=== PATIENT | male | born 1950 | race Caucasian/White ===

== ENCOUNTER 2022-09-13 11:45 | Day surgery (SDC) | payer MEDICARE, OTHER ==
[~2022-09-13] VITALS: Ht 177.8 cm; Wt 90.5 kg
[~2022-09-13 11:45] MED LIST: CIPR500 PO; METR500 PO
[2022-09-13] MEDS ORDERED: TAMS.4ER (12:14)
[2022-09-13] MEDS ORDERED: METAMUCIL POWD798 GM (12:14)
[2022-09-13] MEDS ORDERED: MULTIPLE VITAM1 EACH (12:15)
[2022-09-13 13:52] VITALS: BP 102/51
--- NOTE | 2022-09-13 13:53 | NUR ---
09/13/22 1353 Mona Duque IV, DC'D, CATH INTACT. PRESSURE DRESSING APPLIED. PT TOLERATED WELL.
== END 2022-09-13 13:53 | disposition home or self-care (01) ==
LOC: ORSCSDS 11:45
PROVIDERS: Surgery
PROC: 0DBE8ZX Excision of Large Intestine, Via Natural or Artificial Opening Endoscopic, Diagnostic (ICD-10-PCS; principal; 2022-09-13 13:00)
PROC: 0DBM8ZX Excision of Descending Colon, Via Natural or Artificial Opening Endoscopic, Diagnostic (ICD-10-PCS; principal; 2022-09-13 13:00)
PROC: 0DBL8ZX Excision of Transverse Colon, Via Natural or Artificial Opening Endoscopic, Diagnostic (ICD-10-PCS; principal; 2022-09-13 13:00)
DX: Z85.040 Personal history of malignant carcinoid tumor of rectum (principal); D12.3 Benign neoplasm of transverse colon; D12.4 Benign neoplasm of descending colon; Z87.891 Personal history of nicotine dependence; Z79.899 Other long term (current) drug therapy
CPT/HCPCS: 88305; J2704; J7120

== ENCOUNTER 2024-06-25 16:41 | Inpatient (IN) | payer MEDICARE, OTHER ==
[~2024-06-25] VITALS: Ht 177.8 cm; Wt 83.6 kg
[~2024-06-25 16:41] MED LIST changes: +Aspir 8181 MG PO; +MULTIPLE VITAM1 EACH PO; +PSYLLIUM FIBER PO; +TAMS.4ER PO
[2024-06-25 17:39] LABS: Hematocrit 32.8 % (37.0-53.0); Hemoglobin 10.5 g/dL (13.5-17.5); Mean Corpuscular HGB 25.7 pg (26.0-34.0); Mean Corpuscular Volume 80 fL (80-100); Mean Platelet Volume 8.9 fL (9.1-12.4); Platelet Count 730 K/mm3 (150-400); RDW Standard Deviation 46.2 fL (35.1-46.3); Red Blood Cell Count 4.09 M/mm3 (4.30-5.90); White Blood Cell Count 28.71 K/mm3 (4.00-11.30)
[2024-06-25 17:58] LABS: Bun/Creatinine Ratio 40.2 (12.0-20.0); Calcium, Blood 7.6 mg/dL (8.5-10.1); Creatinine, Blood 0.6 mg/dL (0.60-1.20); Potassium, Blood 3.9 mmol/L (3.5-5.5)
[2024-06-25 17:59] LABS: BAND PERCENT MAN 5 % (0-8); BASOPHILS PERCENT MAN 0 % (0-2); EOSINOPHILS PERCENT MAN 0 % (0-6); LYMPHOCYTES ABSOLUTE MAN 1.43 K/mm3 (0.84-5.20); LYMPHOCYTES PERCENT MAN 5 % (21-46); MONOCYTES ABSOLUTE MAN 1.43 K/mm3 (0.16-1.47); MONOCYTES PERCENT MAN 5 % (4-13); NEUTROPHILS ABSOLUTE MAN 25.83 K/mm3 (1.96-9.15); SEG NEUTROPHILS PERCENT MAN 85 % (41-73); TOTAL CELLS COUNTED 100
[2024-06-25] MEDS ORDERED: NS 1,000 ML IV SCH ×2 (19:00)
[2024-06-25] MEDS ORDERED: LevoFLOXacin 750 MG/D5W 150ML 150 ML IV ONE (19:00)
[2024-06-25] MEDS ORDERED: MetroNIDAZOLE 500MG/NS 100 ml 100 ML IV ONE (19:00)
[2024-06-25 19:22] LABS: Albumin, Blood 1.3 g/dL (3.4-5.0); Albumin/Globulin Ratio 0.3 (0.8-1.8); Bilirubin, Direct 0.5 mg/dL (0.0-0.3); Bilirubin, Indirect 0.6 mg/dL (0.1-0.7); Bilirubin, Total 1.1 mg/dL (0.1-1.0); Globulin, Blood 4.8 g/dL (2.2-4.0); Total Protein, Blood 6.1 g/dL (6.4-8.2)
[2024-06-25] MEDS ORDERED: Morphine Sulfate 4 MG/1 ML Injection IV ONE ×2 (19:50→23:15)
[2024-06-25] MEDS ORDERED: NS 1,000 ML IV ONE (23:38)
[2024-06-26] MEDS ORDERED: Ondansetron HCl 2 MG / ML 2ML Vial IV PRN (00:05)
[2024-06-26] MEDS ORDERED: FentaNYL Citrate 50 MCG/ML 2 ML Injection IV PRN (00:05)
[2024-06-26] MEDS ORDERED: FLU VACC TS2024-25(6MOS UP)/PF 45 MCG/0.5 ML SYRINGE IM ONE (00:05)
[2024-06-26] MEDS ORDERED: NS 1,000 ML IV SCH (00:10)
[2024-06-26] MEDS ORDERED: Vancomycin HCL 2,000 MG in NS 500 ML IV ONE (00:30)
[2024-06-26] MEDS ORDERED: Cefepime HCl 1,000 MG in NS 100 ML IV SCH (00:45)
[2024-06-26 01:00] LABS: Source, Urine Clean Catch
[2024-06-26 01:18] LABS: Appearance, Urine Clear (Clear); Bilirubin, Urine Neg (Neg); Blood, Urine 1+ (Neg); Color, Urine Amber (P-Yellow); Glucose Qualitative, Urine Neg (Neg); Ketones, Urine 2+ (Neg); Leukocyte Esterase, Urine 1+ (Neg); Nitrite, Urine Neg (Neg); Protein, Urine 2+ (Neg); Urobilinogen, Urine 3+ (Normal)
[2024-06-26 01:27] LABS: Red Blood Cells, Urine 0-2 /hpf (0-2); Squamous Epithelial Cells Few /hpf (Few); White Blood Cells, Urine 0-2 /hpf (0-5)
[2024-06-26 01:28] LABS: Bacteria Mod /hpf
[2024-06-26] MEDS ORDERED: Albumin (Human) 25gm/100ml 100 ML IV ONE (02:05)
[2024-06-26 02:31] VITALS: BP 112/63
--- NOTE | 2024-06-26 05:47 | NUR ---
SHIFT SUMMARY; AFTER ADMIT, PATIENT HAS NOT HAD STOOLS YET. DECLINED PAIN MED, FOR NOW. IVF STARTED. TELE ST 117.
[2024-06-26 06:45] LABS: Hematocrit 28.1 % (37.0-53.0); Hemoglobin 8.8 g/dL (13.5-17.5); Mean Corpuscular HGB 25.8 pg (26.0-34.0); Mean Corpuscular HGB Conc 31.3 g/dL (31.5-36.5); Mean Corpuscular Volume 82 fL (80-100); Mean Platelet Volume 8.7 fL (9.1-12.4); Platelet Count 586 K/mm3 (150-400); RDW Coefficient Variation 15.9 % (11.7-14.2); RDW Standard Deviation 47.8 fL (35.1-46.3); Red Blood Cell Count 3.41 M/mm3 (4.30-5.90); White Blood Cell Count 20.65 K/mm3 (4.00-11.30)
[2024-06-26 07:10] LABS: Albumin/Globulin Ratio 0.5 (0.8-1.8); Bilirubin, Total 0.8 mg/dL (0.1-1.0); Bun/Creatinine Ratio 49.1 (12.0-20.0); Creatinine, Blood 0.65 mg/dL (0.60-1.20); Globulin, Blood 3.9 g/dL (2.2-4.0); Potassium, Blood 3.7 mmol/L (3.5-5.5); Total Protein, Blood 5.9 g/dL (6.4-8.2)
[2024-06-26 07:29] VITALS: BP 134/69
[2024-06-26 07:31] LABS: BAND PERCENT MAN 2 % (0-8); BASOPHILS PERCENT MAN 0 % (0-2); EOSINOPHILS PERCENT MAN 0 % (0-6); LYMPHOCYTES ABSOLUTE MAN 0.82 K/mm3 (0.84-5.20); LYMPHOCYTES PERCENT MAN 4 % (21-46); METAMYELOCYTE PERCENT MAN 1 % (0-0); MONOCYTES ABSOLUTE MAN 0.82 K/mm3 (0.16-1.47); MONOCYTES PERCENT MAN 4 % (4-13); NEUTROPHILS ABSOLUTE MAN 18.79 K/mm3 (1.96-9.15); SEG NEUTROPHILS PERCENT MAN 89 % (41-73); TOTAL CELLS COUNTED 100
[2024-06-26] MEDS ORDERED: Lactated Ringer's 1,000 ML IV SCH (11:05)
[2024-06-26] MEDS ORDERED: MetroNIDAZOLE 500MG/NS 100 ml 100 ML IV SCH (12:00)
[2024-06-26 12:12] LABS: Phosphorus, Blood 2.4 mg/dL (2.5-4.9)
[2024-06-26 12:35] VITALS: BP 133/70
[2024-06-26 14:59] LABS: Vancomycin, Trough 14.3 ug/mL (5.0-10.0)
[2024-06-26] MEDS ORDERED: Vancomycin HCL 1,500 MG in NS 250 ML IV SCH (15:00)
[2024-06-26] MEDS ORDERED: OxyCODONE HCL 5 MG TAB PO PRN (15:20)
[2024-06-26 16:15] VITALS: BP 135/76
--- NOTE | 2024-06-26 18:15 | NUR ---
SUMMARY- PT A/O X4, AMBULATES SBA. ABD MOD DISTENDED. HAD SURG CONSULT DR ALSTON. SHE WILL BE REFERRING HIM TO A COLORECTAL SURGEON TO PERFORM THIS SURGERY. PAIN IS IN THE R GROIN RADIATION INTO THE THIGH, CAUSING NUMBNESS INTO THISH AND PAIN. PAIN MANAGED WITH FENT THIS AM, CHANGED TO OXYCONE FOR LONGER COVERAGE WITH FENT AVAIL FOR BTP. PT STATES RELEIF AFTER OXY. AND CAUTIONS THAT HE HAS BECOME VERY LOOPY AND MEAN WITH OXY, WILL MONITOR. WILL REPORT TO NOC RN
[2024-06-26] MEDS ORDERED: MOBIC15 MG PO (18:35)
[2024-06-26] MEDS ORDERED: GABA100 PO (18:35)
[2024-06-26 19:22] VITALS: BP 138/68
[2024-06-26 23:59] VITALS: BP 138/71
[2024-06-27 04:08] VITALS: BP 127/67
--- NOTE | 2024-06-27 05:59 | NUR ---
SHIFT SUMMARY PT SLEPT INTERMITTENTLY DURING THE NIGHT. PT UP TO BATHROOM WITH SBA- LOOSE YELLOW, RED-TINGED, MUCOUSY STOOL. MEDICATED FOR PAIN PER EMAR. IV ANTIBIOTICS PER ORDER. PT TAKING IN SMALL AMOUNTS OF CLEAR LIQUIDS WITHOUT NAUSEA. BED IN LOWEST POSITION, CALL LIGHT WITHIN REACH, SIDERAILS UP X2.
[2024-06-27 06:36] LABS: Hematocrit 23.1 % (37.0-53.0); Hemoglobin 7.3 g/dL (13.5-17.5); Mean Corpuscular HGB Conc 31.6 g/dL (31.5-36.5); Mean Corpuscular Volume 82 fL (80-100); Mean Platelet Volume 9.2 fL (9.1-12.4); Platelet Count 531 K/mm3 (150-400); RDW Coefficient Variation 16.1 % (11.7-14.2); RDW Standard Deviation 48.2 fL (35.1-46.3); Red Blood Cell Count 2.81 M/mm3 (4.30-5.90); White Blood Cell Count 14.95 K/mm3 (4.00-11.30)
[2024-06-27 07:07] LABS: Magnesium, Blood 1.8 mg/dL (1.6-2.4)
--- NOTE | 2024-06-27 07:36 | NUR ---
ASSUMPTION OF CARE: ASSUMED CARE OF PATIENT. AWAKE DURING SHIFT CHANGE REPORT. LYING IN BED c HOB ELEVATED. FLUIDS @ 125mL/hr. BREATHING EVEN AND UNLABORED. BED IN LOWEST POSITION. CALL LIGHT WITHIN REACH. NO ACUTE NEEDS.
[2024-06-27 07:46] VITALS: BP 125/68
[2024-06-27] MEDS ORDERED: Arginine/Glutamine/Calcium Hmb 1 Packet PO SCH (08:00)
[2024-06-27 08:07] LABS: BAND PERCENT MAN 2 % (0-8); BASOPHILS PERCENT MAN 0 % (0-2); EOSINOPHILS ABSOLUTE MAN 0.14 K/mm3 (0.00-0.68); EOSINOPHILS PERCENT MAN 1 % (0-6); LYMPHOCYTES % ATYPICAL MANUAL 1 % (0-0); LYMPHOCYTES ABSOLUTE MAN 1.64 K/mm3 (0.84-5.20); LYMPHOCYTES PERCENT MAN 10 % (21-46); MONOCYTES ABSOLUTE MAN 1.34 K/mm3 (0.16-1.47); MONOCYTES PERCENT MAN 9 % (4-13); NEUTROPHILS ABSOLUTE MAN 11.81 K/mm3 (1.96-9.15); SEG NEUTROPHILS PERCENT MAN 77 % (41-73); TOTAL CELLS COUNTED 100
[2024-06-27 08:08] LABS: Albumin, Blood 1.7 g/dL (3.4-5.0); Albumin/Globulin Ratio 0.5 (0.8-1.8); Bilirubin, Total 0.7 mg/dL (0.1-1.0); Calcium, Blood 7.8 mg/dL (8.5-10.1); Creatinine, Blood 0.64 mg/dL (0.60-1.20); Globulin, Blood 3.7 g/dL (2.2-4.0); Phosphorus, Blood 2.2 mg/dL (2.5-4.9); Potassium, Blood 3.3 mmol/L (3.5-5.5); Total Protein, Blood 5.4 g/dL (6.4-8.2)
[2024-06-27] MEDS ORDERED: Lactated Ringer's 1,000 ML IV SCH (09:00)
[2024-06-27] MEDS ORDERED: Potassium Chloride 40 MEQ in NS 250 ML IV ONE ×2 (09:05→13:00)
[2024-06-27] MEDS ORDERED: Potassium Phosphate Dibasic 20 MM in Dextrose 5% 500 ML IV STA (09:09)
--- NOTE | 2024-06-27 13:57 | NUR ---
DISCHARGE SUMMARY: A&Ox4. PLEASANT AND COOPERATIVE WITH CARE. CALLS APPROPRIATELY AND IS ABLE TO ADVOCATE NEEDS EFFECTIVELY. AMBULATES c SBA. CONTINENT OF BOWEL AND BLADDER. MEDS WHOLE c FLUIDS. LBM TODAY. TELE NSR. C/O PAIN IN HANDS AND REQUESTED PAIN MED TWICE. MEDICATIONS FAXED TO [facility]. INSTRUCTED TO FOLLOW-UP WITH PCP AND DERMAGOLOGY ORDERED. LEFT FLOOR AT 1358 WITH ALL BELONGINGS AND DISCHARGE PACKET, ESCORTED BY FAMILY.
[2024-06-27 19:31] VITALS: BP 142/68
[2024-06-27] MEDS ORDERED: Enoxaparin 40 MG/0.4 ML SYR SC SCH ×2 (20:00)
[2024-06-27 23:45] VITALS: BP 130/74
[2024-06-28 05:12] VITALS: BP 146/66
[2024-06-28 05:22] LABS: Hematocrit 23.7 % (37.0-53.0); Hemoglobin 7.5 g/dL (13.5-17.5); Mean Corpuscular HGB Conc 31.6 g/dL (31.5-36.5); Mean Corpuscular Volume 82 fL (80-100); NRBC ABSOLUTE 0.02 K/mm3 (0.00-0.02); NRBC Auto 0.2 /100 WBC (0.0-0.2); Platelet Count 530 K/mm3 (150-400); RDW Coefficient Variation 16.3 % (11.7-14.2); RDW Standard Deviation 47.9 fL (35.1-46.3); Red Blood Cell Count 2.89 M/mm3 (4.30-5.90); White Blood Cell Count 9.28 K/mm3 (4.00-11.30)
[2024-06-28 05:41] LABS: International Normalized Ratio 1.32; Prothrombin Time Results 13.8 Sec (9.7-11.5)
[2024-06-28 05:47] LABS: Magnesium, Blood 1.8 mg/dL (1.6-2.4)
[2024-06-28 05:48] LABS: Albumin, Blood 1.6 g/dL (3.4-5.0); Albumin/Globulin Ratio 0.4 (0.8-1.8); Bilirubin, Total 0.5 mg/dL (0.1-1.0); Bun/Creatinine Ratio 13.9 (12.0-20.0); Calcium, Blood 7.8 mg/dL (8.5-10.1); Creatinine, Blood 0.65 mg/dL (0.60-1.20); Globulin, Blood 3.9 g/dL (2.2-4.0); Phosphorus, Blood 2.5 mg/dL (2.5-4.9); Potassium, Blood 3.4 mmol/L (3.5-5.5); Total Protein, Blood 5.5 g/dL (6.4-8.2)
[2024-06-28 05:55] LABS: BAND PERCENT MAN 5 % (0-8); BASOPHILS PERCENT MAN 0 % (0-2); EOSINOPHILS ABSOLUTE MAN 0.18 K/mm3 (0.00-0.68); EOSINOPHILS PERCENT MAN 2 % (0-6); LYMPHOCYTES ABSOLUTE MAN 0.64 K/mm3 (0.84-5.20); LYMPHOCYTES PERCENT MAN 7 % (21-46); METAMYELOCYTE ABSOLUTE MAN 0.09 K/mm3 (0.00-0.00); METAMYELOCYTE PERCENT MAN 1 % (0-0); MONOCYTES ABSOLUTE MAN 1.11 K/mm3 (0.16-1.47); MONOCYTES PERCENT MAN 12 % (4-13); MYELOCYTE ABSOLUTE MAN 0.27 K/mm3 (0.00-0.00); MYELOCYTE PERCENT MAN 3 % (0-0); NEUTROPHILS ABSOLUTE MAN 6.96 K/mm3 (1.96-9.15); SEG NEUTROPHILS PERCENT MAN 70 % (41-73); TOTAL CELLS COUNTED 100
--- NOTE | 2024-06-28 06:02 | NUR ---
SHIFT SUMMARY PT SLEPT INTERMITTENTLY DURING THE NIGHT. URICEL DRAIN WITH BROWN/PINK DRAINAGE. DRAIN IS EMPTYING SOME AIR FROM ABSCESSED AREA AT TIMES. PT STATES HE FEELS SOME INCREASED PAIN WHEN THIS HAPPENS. MEDICATED FOR PAIN PER EMAR. IV ANTIBIOTICS CONTINUE PER ORDER. NEW IV STARTED LEFT FOREARM. BED IN LOWEST POSITION, CALL LIGHT WITHIN REACH, SIDERAILS UP X2.
[2024-06-28 07:27] VITALS: BP 147/76
--- NOTE | 2024-06-28 07:38 | NUR ---
ASSUMPTION OF CARE: AWAKE DURING SHIFT CHANGE REPORT. URASIL PATENT AND DRAINING PINKISH-CASTELLANO DRAINAGE. NO ACUTE NEEDS.
[2024-06-28] MEDS ORDERED: Protein Supplement 30 ML UD PO SCH (09:00)
[2024-06-28 11:58] VITALS: BP 122/73
[2024-06-28 15:43] VITALS: BP 137/66
[2024-06-28] MEDS ORDERED: Sod Ferric Gluc Complx/Sucrose 125 MG in NS 100 ML IV SCH (16:00)
[2024-06-28 19:29] VITALS: BP 126/68
--- NOTE | 2024-06-28 19:56 | NUR ---
END OF SHIFT SUMMARY: A&Ox4. PLEASANT AND COOPERATIVE WITH CARE. CALLS APPROPRIATELY AND IS ABLE TO ADVOCATE NEEDS EFFECTIVELY. CONTINENT OF BOWEL AND BLADDER; URINAL FOR VOIDING. NO BM x2 DAYS AFTER SEVERAL DAYS OF LIQUID STOOL INCONTINENCE. AMBULATES INDEPENDENTLY. MEDS WHOLE c FLUIDS. PAIN T/O DAY; ENCOURAGED TO NOT ALLOW PAIN TO GET >5 BEFORE ASKING FOR PAIN MEDS. ANTICIPATE COBRA OUT ON MONDAY OR MONDAY AND COLOSTOMY SURGERY ON MONDAY. BED IN LOWEST POSITION, CALL LIGHT WITHIN REACH, ALL NEEDS MET. REPORT TO ONCOMING NURSE.
[2024-06-29 00:20] VITALS: BP 132/72
--- NOTE | 2024-06-29 04:12 | NUR ---
SHIFT SUMMARY: Pt is admitted for complications of internal anastonosis and is a full code. Is alert and able to make needs known. ADLs have been mostly SBA but did not get out of bed. Pain has been managed with PRN medication. Drain to right flank has had light green discharge with a fair amount of air in the drain.
[2024-06-29 04:26] VITALS: BP 136/72
[2024-06-29 05:33] LABS: Hematocrit 25.1 % (37.0-53.0); Hemoglobin 7.7 g/dL (13.5-17.5); Mean Corpuscular HGB 25.6 pg (26.0-34.0); Mean Corpuscular HGB Conc 30.7 g/dL (31.5-36.5); Mean Corpuscular Volume 83 fL (80-100); Platelet Count 559 K/mm3 (150-400); RDW Coefficient Variation 16.6 % (11.7-14.2); RDW Standard Deviation 48.9 fL (35.1-46.3); Red Blood Cell Count 3.01 M/mm3 (4.30-5.90); White Blood Cell Count 9.14 K/mm3 (4.00-11.30)
[2024-06-29 05:58] LABS: BAND PERCENT MAN 6 % (0-8); BASOPHILS ABSOLUTE MAN 0.09 K/mm3 (0.00-0.23); BASOPHILS PERCENT MAN 1 % (0-2); EOSINOPHILS ABSOLUTE MAN 0.09 K/mm3 (0.00-0.68); EOSINOPHILS PERCENT MAN 1 % (0-6); LYMPHOCYTES ABSOLUTE MAN 0.91 K/mm3 (0.84-5.20); LYMPHOCYTES PERCENT MAN 10 % (21-46); METAMYELOCYTE ABSOLUTE MAN 0.45 K/mm3 (0.00-0.00); METAMYELOCYTE PERCENT MAN 5 % (0-0); MONOCYTES ABSOLUTE MAN 1.37 K/mm3 (0.16-1.47); MONOCYTES PERCENT MAN 15 % (4-13); MYELOCYTE ABSOLUTE MAN 0.18 K/mm3 (0.00-0.00); MYELOCYTE PERCENT MAN 2 % (0-0); NEUTROPHILS ABSOLUTE MAN 6.03 K/mm3 (1.96-9.15); SEG NEUTROPHILS PERCENT MAN 60 % (41-73); TOTAL CELLS COUNTED 100
[2024-06-29 06:01] LABS: Albumin, Blood 1.6 g/dL (3.4-5.0); Albumin/Globulin Ratio 0.4 (0.8-1.8); Bilirubin, Total 0.3 mg/dL (0.1-1.0); Bun/Creatinine Ratio 17.5 (12.0-20.0); Calcium, Blood 7.9 mg/dL (8.5-10.1); Creatinine, Blood 0.57 mg/dL (0.60-1.20); Globulin, Blood 3.9 g/dL (2.2-4.0); Magnesium, Blood 1.8 mg/dL (1.6-2.4); Percent Saturation 25.4 % (20.0-50.0); Phosphorus, Blood 2.2 mg/dL (2.5-4.9); Potassium, Blood 3.7 mmol/L (3.5-5.5); Total Protein, Blood 5.5 g/dL (6.4-8.2)
[2024-06-29 07:41] VITALS: BP 114/89
[2024-06-29 15:59] VITALS: BP 127/82
[2024-06-29] MEDS ORDERED: Sodium Phosphate Mono/Dibasic 250 MG Tab PO SCH (17:00)
--- NOTE | 2024-06-29 19:20 | NUR ---
PT VERY PLEASANT TODAY. DID HAVE MILKY MINIMAL FLUID IN ACCORDIAN DRAIN THIS AM. CHANGED TO MORE DARK BROWN. STILL MINIMAL. WITH SOME AIR NOTED IN BAG. PT AMBULATED TO BATHROOM FOR BM TODAY. SOME DARK STOOL. DID NOT NOTE ANY REDNESS IN STOOL IN TOILET. PT AMBULATED 1 MIN ASST. STILL PENDING TRANSFER TO [facility]. FAMILY IN TO VISIT TODAY. NO OTHER NEW CONCERNS NOTED. BED IN LOW POSITION, CALL LITE IN REACH, CALLS APROP
[2024-06-29 20:04] VITALS: BP 145/76
[2024-06-29] MEDS ORDERED: NS 250 ML IV PRN (20:40)
[2024-06-29] MEDS ORDERED: Protein Supplement 30 ML UD PO SCH (21:00)
[2024-06-29 23:50] VITALS: BP 131/70
[2024-06-30 04:16] VITALS: BP 130/76
[2024-06-30 05:36] LABS: Hematocrit 26.4 % (37.0-53.0); Hemoglobin 8.2 g/dL (13.5-17.5); Mean Corpuscular HGB 25.9 pg (26.0-34.0); Mean Corpuscular HGB Conc 31.1 g/dL (31.5-36.5); Mean Corpuscular Volume 83 fL (80-100); Mean Platelet Volume 9.1 fL (9.1-12.4); Platelet Count 549 K/mm3 (150-400); RDW Coefficient Variation 16.8 % (11.7-14.2); RDW Standard Deviation 48.8 fL (35.1-46.3); Red Blood Cell Count 3.17 M/mm3 (4.30-5.90); White Blood Cell Count 11.88 K/mm3 (4.00-11.30)
[2024-06-30 05:59] LABS: Albumin, Blood 1.7 g/dL (3.4-5.0); Albumin/Globulin Ratio 0.4 (0.8-1.8); Bilirubin, Total 0.4 mg/dL (0.1-1.0); Bun/Creatinine Ratio 33.8 (12.0-20.0); Calcium, Blood 7.7 mg/dL (8.5-10.1); Creatinine, Blood 0.59 mg/dL (0.60-1.20); Globulin, Blood 3.9 g/dL (2.2-4.0); Magnesium, Blood 1.9 mg/dL (1.6-2.4); Phosphorus, Blood 1.7 mg/dL (2.5-4.9); Potassium, Blood 3.9 mmol/L (3.5-5.5); Total Protein, Blood 5.6 g/dL (6.4-8.2)
--- NOTE | 2024-06-30 06:10 | NUR ---
SHIFT SUMMARY: Pt is admitted for complications of internal anastonosis and is a full code. Is alert and able to make needs known. ADLs have been mostly SBA but did not get out of bed. Pain has been managed with PRN medication. Drain to right side has had dark red discharge with a fair amount of air in the drain.
[2024-06-30 06:20] LABS: BAND PERCENT MAN 5 % (0-8); BASOPHILS ABSOLUTE MAN 0.23 K/mm3 (0.00-0.23); BASOPHILS PERCENT MAN 2 % (0-2); EOSINOPHILS PERCENT MAN 0 % (0-6); LYMPHOCYTES ABSOLUTE MAN 1.18 K/mm3 (0.84-5.20); LYMPHOCYTES PERCENT MAN 10 % (21-46); METAMYELOCYTE ABSOLUTE MAN 0.11 K/mm3 (0.00-0.00); METAMYELOCYTE PERCENT MAN 1 % (0-0); MONOCYTES ABSOLUTE MAN 0.95 K/mm3 (0.16-1.47); MONOCYTES PERCENT MAN 8 % (4-13); MYELOCYTE ABSOLUTE MAN 0.35 K/mm3 (0.00-0.00); MYELOCYTE PERCENT MAN 3 % (0-0); NEUTROPHILS ABSOLUTE MAN 9.02 K/mm3 (1.96-9.15); SEG NEUTROPHILS PERCENT MAN 71 % (41-73); TOTAL CELLS COUNTED 100
[2024-06-30 07:46] VITALS: BP 142/77
[2024-06-30] MEDS ORDERED: Pregabalin 25 MG Capsule PO SCH (10:00)
[2024-06-30] MEDS ORDERED: Loperamide HCl 2 MG Cap PO SCH (15:00)
[2024-06-30 15:22] VITALS: BP 128/65
--- NOTE | 2024-06-30 18:12 | NUR ---
PT PLEASANT TODAY, SOME INCREASE IN PAIN NOTED. PAIN MANAGED WITH AVAIL MEDS. DR ORDERED CT AND IT SHOWS SOME IMPROVEMENT PER DR. PT STATES HE IS PLEASED AND RELEIVED. DRAIN CONTINUES TO PRODUCE DARK BROWN STOOL LIKE RUNNY SUBSTANCE ALONG WITH MUCH AIR. PENDING TRANSFER TO [facility]. LOPERAMIDE STARTED FOR LOOSE STOOLS. STOOLS SLOWED DOWN. NO OTHER NEW CONCERNS NOTED. PT RESTIING NOW, EYES CLOSED, RESP EASY, UNLABORED. BED IN LOW POSITION, CALL LITE IN REACH, CALLS APPROP
[2024-06-30 19:06] VITALS: BP 117/63
[2024-06-30] MEDS ORDERED: Lactobacil 2-S.Thermo-Bifido 1 1 Cap PO SCH (21:00)
[2024-07-01 04:49] VITALS: BP 124/77
[2024-07-01 05:48] LABS: BASOPHILS PERCENT AUTO 1 % (0-2); EOSINOPHILS ABSOLUTE AUTO 0.18 K/mm3 (0.00-0.68); EOSINOPHILS PERCENT AUTO 2 % (0-6); Hematocrit 27.4 % (37.0-53.0); Hemoglobin 8.6 g/dL (13.5-17.5); IMMATURE GRAN ABSOLUTE AUTO 0.61 K/mm3 (0.00-0.10); IMMATURE GRAN PERCENT AUTO 7 % (0-1); LYMPHOCYTES ABSOLUTE AUTO 1.52 K/mm3 (0.84-5.20); LYMPHOCYTES PERCENT AUTO 17 % (21-46); MONOCYTES ABSOLUTE AUTO 1.37 K/mm3 (0.16-1.47); MONOCYTES PERCENT AUTO 15 % (4-13); Mean Corpuscular HGB Conc 31.4 g/dL (31.5-36.5); Mean Corpuscular Volume 83 fL (80-100); Mean Platelet Volume 8.7 fL (9.1-12.4); NEUTROPHILS ABSOLUTE AUTO 5.36 K/mm3 (1.96-9.15); NEUTROPHILS PERCENT AUTO 59 % (41-73); Platelet Count 546 K/mm3 (150-400); RDW Coefficient Variation 17.8 % (11.7-14.2); RDW Standard Deviation 49.1 fL (35.1-46.3); Red Blood Cell Count 3.31 M/mm3 (4.30-5.90); White Blood Cell Count 9.14 K/mm3 (4.00-11.30)
[2024-07-01 06:11] LABS: BAND PERCENT MAN 3 % (0-8); BASOPHILS ABSOLUTE MAN 0.18 K/mm3 (0.00-0.23); BASOPHILS PERCENT MAN 2 % (0-2); EOSINOPHILS PERCENT MAN 0 % (0-6); LYMPHOCYTES ABSOLUTE MAN 1.09 K/mm3 (0.84-5.20); LYMPHOCYTES PERCENT MAN 12 % (21-46); METAMYELOCYTE ABSOLUTE MAN 0.09 K/mm3 (0.00-0.00); METAMYELOCYTE PERCENT MAN 1 % (0-0); MONOCYTES ABSOLUTE MAN 1.73 K/mm3 (0.16-1.47); MONOCYTES PERCENT MAN 19 % (4-13); NEUTROPHILS ABSOLUTE MAN 6.03 K/mm3 (1.96-9.15); SEG NEUTROPHILS PERCENT MAN 63 % (41-73); TOTAL CELLS COUNTED 100
[2024-07-01 06:29] LABS: Albumin, Blood 1.9 g/dL (3.4-5.0); Albumin/Globulin Ratio 0.4 (0.8-1.8); Bilirubin, Total 0.3 mg/dL (0.1-1.0); Bun/Creatinine Ratio 35.6 (12.0-20.0); Calcium, Blood 8.2 mg/dL (8.5-10.1); Creatinine, Blood 0.59 mg/dL (0.60-1.20); Globulin, Blood 4.3 g/dL (2.2-4.0); Phosphorus, Blood 2.4 mg/dL (2.5-4.9); Potassium, Blood 4.3 mmol/L (3.5-5.5); Total Protein, Blood 6.2 g/dL (6.4-8.2)
[2024-07-01 07:24] VITALS: BP 119/70
[2024-07-01 15:46] VITALS: BP 118/70
--- NOTE | 2024-07-01 17:15 | NUR ---
PT IS A&O X4. REPORTING MODERATE TO SEVERE PAIN TO HIS LLQ, AND LRQ RADIATING FROM SITE OF URESIL INSERTION DOWN HIS QUAD AND EFFECTING THE STRENGTH OF HIS RIGHT LEG. 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 IV TO LEFT FOREARM. ROOM AIR. CONTINENT OF BOWEL AND BLADDER. PT HAS HAD TWO BOWEL MOVEMENTS THAT WERE DARK BROWN, DARKER THAN CHOCOLATE PUDDING BUT NOT BLACK.
[2024-07-01 19:46] VITALS: BP 146/71
[2024-07-02 03:58] VITALS: BP 128/70
--- NOTE | 2024-07-02 06:36 | NUR ---
SUMMARY: PT A/OX4, IS INDEPENDENT IN ROOM AND CALLS APPROPRIATELY TO SPECIFY NEEDS. HE REPORTS INTERMITTENT PAIN TO ABDO/BACK THAT RADIATES DOWN R.LEG, ROXICODONE PROVIDED PRN FOR TOLERABLE RELIEF. R.LEG IS ALSO MORE EDEMATOUS THAN L.LEG W/BLE ELEVATION ENCOURAGED IN BED. HIS URESIL DRAIN IS PATENT AND INTACT TO RLQ W/APPROX 60 MLS BROWN PURULENT OUTPUT. IV ABX RECEIVED PER EMAR. HE'S CONTINENT W/BOWEL URGENCY D/T LOOSE STOOLS, IMMODIUM PROVIDED PER EMAR. NO ACUTE CHANGES, VSS/AFEBRILE. WILL REPORT TO DAY RN.
[2024-07-02 06:50] LABS: Hematocrit 25.9 % (37.0-53.0); Mean Corpuscular HGB 25.6 pg (26.0-34.0); Mean Corpuscular HGB Conc 30.9 g/dL (31.5-36.5); Mean Corpuscular Volume 83 fL (80-100); Platelet Count 440 K/mm3 (150-400); RDW Coefficient Variation 18.7 % (11.7-14.2); RDW Standard Deviation 50.2 fL (35.1-46.3); Red Blood Cell Count 3.12 M/mm3 (4.30-5.90); White Blood Cell Count 7.24 K/mm3 (4.00-11.30)
[2024-07-02 07:10] LABS: Albumin, Blood 1.8 g/dL (3.4-5.0); Albumin/Globulin Ratio 0.4 (0.8-1.8); Bilirubin, Total 0.4 mg/dL (0.1-1.0); Bun/Creatinine Ratio 36.8 (12.0-20.0); Calcium, Blood 8.2 mg/dL (8.5-10.1); Creatinine, Blood 0.54 mg/dL (0.60-1.20); Globulin, Blood 4.1 g/dL (2.2-4.0); Magnesium, Blood 1.9 mg/dL (1.6-2.4); Phosphorus, Blood 2.6 mg/dL (2.5-4.9); Potassium, Blood 3.8 mmol/L (3.5-5.5); Total Protein, Blood 5.9 g/dL (6.4-8.2)
[2024-07-02 07:16] LABS: BASOPHILS PERCENT MAN 0 % (0-2); EOSINOPHILS PERCENT MAN 0 % (0-6); LYMPHOCYTES ABSOLUTE MAN 1.23 K/mm3 (0.84-5.20); LYMPHOCYTES PERCENT MAN 17 % (21-46); METAMYELOCYTE PERCENT MAN 7 % (0-0); MONOCYTES ABSOLUTE MAN 0.86 K/mm3 (0.16-1.47); MONOCYTES PERCENT MAN 12 % (4-13); NEUTROPHILS ABSOLUTE MAN 4.63 K/mm3 (1.96-9.15); SEG NEUTROPHILS PERCENT MAN 64 % (41-73); TOTAL CELLS COUNTED 100
[2024-07-02 07:25] VITALS: BP 123/66
[2024-07-02] MEDS ORDERED: Peg/Electrolytes 4,000 ML BTL PO ONE (10:35)
[2024-07-02] MEDS ORDERED: MetroNIDAZOLE 500 MG Tab PO SCH (13:00)
[2024-07-02] MEDS ORDERED: Ciprofloxacin 500 MG Tab PO ONE ×2 (13:00→23:00)
[2024-07-02 14:40] VITALS: BP 123/66
[2024-07-02 16:24] VITALS: BP 123/66
--- NOTE | 2024-07-02 18:02 | NUR ---
DISCHARGE NOTE PT A&OX4. PT ADMITTED DUE TO COMPLICATIONS OF INTERNAL ANASTOMOSIS. PT RECEIVED IV ANTIBIOTICS THROUGHOUT DAY. PT INDEPENDENT IN ROOM BUT A SBA WHEN HOOKED TO IV. PT STARTED ON BOWEL PREP AT 12, DRANK ABOUT HALF THE JUG. PT LEFT WITH DISCHARGE PAPERWORK. PT LEFT WITH IV. PT ON CLEAR LIQUIDS AFTER LUNCH. [facility] IS TRANSFERING PT TO [facility]. VSS. GAVE [facility] RN REPORT. PT RECEIVED 10MG OF OXI FOR PAIN. PT HAS URISEL DRAIN, DRAIN INTACT AND FLOWING ADEQUATE.
== END 2024-07-02 17:44 | disposition short-term general hospital (02) | DRG 862 ==
LOC: ER 16:41 → MEDS 06-26 00:03 → SURS 06-26 00:03 → MEDS 06-26 02:24
PROVIDERS: Family Medicine; Student in an Organized Health Care Education/Training Program; ADMIT Internal Medicine
DX: T81.44XA Sepsis following a procedure, initial encounter (principal); A41.9 Sepsis, unspecified organism; K68.19 Other retroperitoneal abscess; K91.89 Other postprocedural complications and disorders of digestive system; E46 Unspecified protein-calorie malnutrition; T82.530A Leakage of surgically created arteriovenous fistula, initial encounter; C18.9 Malignant neoplasm of colon, unspecified; N40.0 Benign prostatic hyperplasia without lower urinary tract symptoms; R06.6 Hiccough; M79.651 Pain in right thigh; Z88.0 Allergy status to penicillin; Z79.82 Long term (current) use of aspirin; Z79.899 Other long term (current) drug therapy; Z90.49 Acquired absence of other specified parts of digestive tract; Z89.432 Acquired absence of left foot; Z87.19 Personal history of other diseases of the digestive system; Z88.1 Allergy status to other antibiotic agents; Z87.891 Personal history of nicotine dependence; Z68.28 Body mass index [BMI] 28.0-28.9, adult; X58.XXXA Exposure to other specified factors, initial encounter
CPT/HCPCS: 36415; 49406; 74177; 74178; 80048; 80053; 80076; 80202; 81001; 82607; 82728; 82746; 83540; 83550; 83605; 83690; 83735; 83880; 83970; 84100; 85025; 85610; 85730; 87040; 87086; 96361; 96365-59; 96366; 96367; 96375; 96376; 99285-25; A9270; J0692; J1650; J1956; J2270; J2916; J3010; J3370; J7030; J7040; J7050; J7060; J7120; P9047; Q9967